=== PATIENT | female | born 1950 | race Caucasian/White ===

== ENCOUNTER → 2016-12-05 | Day surgery (SDC) | payer OTHER ==
[~2016-12-05] VITALS: Ht 167.6 cm; Wt 86.5 kg
[~2016-12-05] MED LIST: ASPI1TAB69 PO; BUPIVACAINE HCL PF 0.5% 30 ML VIAL ONE; CLINDAMYCIN PHOS 900 MG/6 ML VIAL ONE; DEXT 5%-NACL 0.45% 1000 ML INJ 1,000 ML IV SCH; FAMOTIDINE 20 MG/2 ML VIAL ONE; GLUC500T4 PO; IBUP800T23 PO; LACTATED RINGER'S 1000 ML INJ 1,000 ML ONE; MIDAZOLAM HCL 2 MG/2 ML VIAL ONE; SODIUM CHLORIDE 0.9% FLUSH 5 ML FLUSH IVF PRN; SODIUM CHLORIDE 0.9% FLUSH 5 ML FLUSH IVF SCH; SODIUM CHLORIDE 0.9% INJ 100 ML ONE; fentaNYL CITRATE 250 MCG/5 ML AMP ONE
[2016-12-05 11:32] VITALS: BP 158/92; PULSE 60; RESP 16; TEMP 97.9; O2SAT 98
[2016-12-05 11:33] LABS: HEMATOCRIT 41.6 % (35.0-46.0); MEAN CELL VOLUME 86.4 FL (80.0-100.0); MEAN CORPUSCULAR HEMOGLOBIN 28.4 PG (27.0-34.0); MEAN CORPUSCULAR HGB CONC 32.8 % (32.0-36.0); PLATELET COUNT 285 TH/MM3 (150-450); RED BLOOD COUNT 4.81 MIL/MM3 (4.00-5.30); REVIEW FLAG FINAL; WHITE BLOOD COUNT 6.3 TH/MM3 (4.0-11.0)
--- NOTE | 2016-12-05 12:43 | HP.UPD ---
H&P Update Date: Dec 05, 2016 Note The Pre-Admit History and Physical Examination regarding the above named patient was reviewed (including, but not limited to, vital signs, medications, allergies, co-morbid conditions), and upon re-examination it is noted that: Indicated with "X" x - the patient's condition has not significantly changed since the last examination. [] - the patient's condition has changed since the last examination. Changes: Anneliese Dumont MD Dec 05, 2016 12:42
--- NOTE | 2016-12-05 13:54 | HHI.PR ---
Immediate Post Op Note Procedure Date: Dec 05, 2016 Pre Op Diagnosis: (1) Carpal tunnel syndrome Post Op Diagnosis: (1) Carpal tunnel syndrome Surgeon: Anneliese Dumont Check Cashier(s): None Procedure: Endoscopic release of the right carpal tunnel. Anesthesia: General Drains: None Tourniquet time (min at mmHg) 15 minutes using the Hemaclear. Patient to: PACU Patient Condition: Good Date/Time of Procedure: SEE SURGICAL CARE RECORD Anneliese Dumont MD Dec 05, 2016 13:54
[2016-12-05 15:00] VITALS: BP 148/65; PULSE 71; RESP 16; TEMP 97.8; O2SAT 97
--- NOTE | 2016-12-05 15:15 | MP ---
cc: ALFRED PEDERSEN M.D. DATE OF SURGERY: 12/05/2016 PREOPERATIVE DIAGNOSIS Right carpal tunnel syndrome. POSTOPERATIVE DIAGNOSIS Right carpal tunnel syndrome. PROCEDURE Endoscopic release of the right carpal tunnel. ANESTHESIA General. SURGEON Dr. Pedersen INDICATION A 66-year-old female with right carpal tunnel syndrome for release. FINDINGS At the completion of the procedure the transverse carpal ligament had been completely divided. TOURNIQUET TIME 15 minutes using the HemaClear. DETAILS OF PROCEDURE The patient was seen preoperatively where the site and side were identified and marked. The patient was then taken to the operating room, placed in a supine position. Her identity was checked against the arm band and the consent form, site and side confirmed. A timeout was called prior to beginning the procedure. The right upper extremity was prepped with Hibiclens and draped in the usual sterile fashion. The area to be incised was outlined with a marking pen as a transverse incision in the distal forearm 1.5 cm proximal to the distal wrist crease. The distal edge of the transverse carpal ligament was identified and marked. The arm was then simultaneously exsanguinated and the tourniquet placed using a HemaClear tourniquet. Once it was in place a #15 blade was used to make a transverse incision in the distal forearm down through the skin down to the subcutaneous tissue. Under loupe magnification using a spread technique the superficial fascia was identified and entered. It was then elevated. The synovial elevator was used to identify the transverse carpal ligament as well as clean the synovium from it. The obturator cannula apparatus was then introduced into the wound and then just distal to the transverse carpal ligament popped through the palmar fascia into the subcutaneous plane where a separate incision was made. The entire apparatus was delivered. The obturator was removed leaving the cannula in place. The scope was then passed from distal to proximal identifying the transverse carpal ligament. Then under direct vision using the scope the transverse carpal ligament was divided. Photos were taken. The obturator was then placed back into the cannula and the entire apparatus was removed. A forearm fasciotomy was then carried out for 2 or 3 cm proximal to the distal wrist incision. All operated areas were then infiltrated with bupivacaine 0.5% plain and the wounds were closed with Dermabond. Once the glue had dried in several layers Steri-Strips were applied. Pressure was applied to the wounds and the tourniquet was removed. After several minutes there was no evidence of any oozing and a dressing was applied using 4x4s and hand wrap. The patient was then taken from the operating room to the recovery room in satisfactory condition having tolerated the procedure well. Postoperative instructions include keeping the arm elevated, keeping it clean and dry, and returning later in the week for follow-up. The patient was given a prescription for ibuprofen 800 mg. MD NAA Khanna/YRN /1:57 PM /3:07 PM
--- NOTE | 2016-12-05 15:58 | EKG ---
Date Performed: 12/05/2016 Time Performed: 11:36:48 PTAGE: 66 years EKG: Sinus rhythm with borderline 1st degree A-V block. Incomplete RBBB Poor R wave progression - probable normal vari ant Borderline ECG NO PREVIOUS TRACING DOCTOR: Julien Dodson Interpretating Date/Time 12/05/2016 15:57:15
== END | disposition home or self-care (01) ==
LOC: PHSDC 09:17
PROVIDERS: ATTEND Specialist
DX: G56.01 Carpal tunnel syndrome, right upper limb (principal); R94.31 Abnormal electrocardiogram [ECG] [EKG]
CPT/HCPCS: 01810; 29848; 36415; 85027; 93005; J2250; J3010; J7120